=== PATIENT | female | born 1935 | race African-American/Black ===

== ENCOUNTER 2016-09-17 09:47 | Day surgery (SDC) | payer OTHER ==
[~2016-09-17] VITALS: Ht 162.6 cm; Wt 93.9 kg
[~2016-09-17 09:47] MED LIST: ALPRAZOLAM0.25 M2 PO; ASPIR 8181 M1 PO; ASPIRIN81 M2 PO; BIOTENE ORALBAL42 GM MM; CALTRATE 600 +1 EAC1 PO; CEFTIN500 MG PO; CLONAZEPAM0.5 MG PO; CYANOCOBALAM1000 MCG PO; DAILY VALUE1 EACH PO; DAILY VITAMIN1 EAC8 PO; DESYREL 150 MG150 MG PO; DESYREL100 MG PO; FISH OIL 1,0001 EAC7 PO; FISH OIL300 MG PO; FLAGYL500 MG PO; FUROSEMIDE20 MG PO; HUMALOG100 UNIT/1 SC; HYDROCHLOROTHIA25 MG PO; LANTUS 10100 UNITS/ SC; LEVOFLOXACIN250 MG PO; LIDODERM 5% P1 PATCH TD; LISINOPRIL40 MG PO; LISINOPRIL5 MG PO; LO-DOSE ASPIRIN81 M1 PO; MELATONIN3 MG PO; MELATONIN5 M1 PO; MIRTAZAPINE15 MG PO; MIRTAZAPINE45 MG PO; MOTRIN600 MG PO; MUPIROCIN15 GM TP; NAMENDA XR14 MG PO; NOVOLOG PE100 UNITS/ SC; PHENERGAN DM SYR1 ML PO; PRAVACHOL40 MG PO; PRAVASTATIN SOD20 MG PO; PROTONIX40 MG PO; REMERON45 MG PO; ROBITUSSIN DM118 ML PO; TAB-A-VITE1 EACH PO; TRAMADOL HCL50 MG PO; TRAZODONE HCL150 MG PO; TRAZODONE HCL50 MG PO; TYLENOL ARTHRI650 MG PO; ULTRAM50 MG PO; ZESTRIL40 MG PO
[2016-09-17 10:32] LABS: POINT-OF-CARE METER ID UU14174212
== END 2016-09-17 12:30 | disposition home or self-care (01) ==
LOC: PAIN 09:47 → SDC 10:30 → PAIN 12:30
PROVIDERS: Anesthesiology Pain Medicine
DX: M47.816 Spondylosis without myelopathy or radiculopathy, lumbar region (principal); M54.5 Low back pain; F41.9 Anxiety disorder, unspecified; M79.1 Myalgia; F32.9 Major depressive disorder, single episode, unspecified; G47.00 Insomnia, unspecified; G47.30 Sleep apnea, unspecified; I10 Essential (primary) hypertension; Z85.3 Personal history of malignant neoplasm of breast; E11.9 Type 2 diabetes mellitus without complications; E78.5 Hyperlipidemia, unspecified; R41.3 Other amnesia; Z82.61 Family history of arthritis; Z82.49 Family history of ischemic heart disease and other diseases of the circulatory system; Z83.3 Family history of diabetes mellitus; Z83.42 Family history of familial hypercholesterolemia; Z84.1 Family history of disorders of kidney and ureter; Z81.8 Family history of other mental and behavioral disorders; Z88.5 Allergy status to narcotic agent
CPT/HCPCS: 82948; J1030; J1885; S0020

== ENCOUNTER 2016-09-24 09:46 | Day surgery (SDC) | payer OTHER ==
[~2016-09-24] VITALS: Ht 162.6 cm; Wt 93.9 kg
[2016-09-24 10:34] LABS: POINT-OF-CARE METER ID UU14174212
== END 2016-09-24 11:30 | disposition home or self-care (01) ==
LOC: PAIN 09:46 → SDC 10:30 → PAIN 10:30
PROVIDERS: Anesthesiology Pain Medicine
PROC: 3E0T33Z Introduction of Anti-inflammatory into Peripheral Nerves and Plexi, Percutaneous Approach (ICD-10-PCS; principal; 2016-09-24)
PROC: 3E0T3BZ Introduction of Anesthetic Agent into Peripheral Nerves and Plexi, Percutaneous Approach (ICD-10-PCS; principal; 2016-09-24)
DX: M47.896 Other spondylosis, lumbar region (principal); M54.5 Low back pain; F41.1 Generalized anxiety disorder; I10 Essential (primary) hypertension; E78.5 Hyperlipidemia, unspecified; E11.9 Type 2 diabetes mellitus without complications; G47.30 Sleep apnea, unspecified
CPT/HCPCS: 82948; J1030; S0020